=== PATIENT | female | born 1975 | race African-American/Black ===

== ENCOUNTER 2021-04-27 09:58 | Emergency (ER) | payer MEDICAID ==
[~2021-04-27] VITALS: Ht 165.1 cm; Wt 86.2 kg
[2021-04-27 10:05] VITALS: BP_SYST 99
--- NOTE | 2021-04-27 10:05 | NUR ---
Placed in room 7 . Placed on monitoring tech, blood pressure machine and pulse oximeter. To gown for exam. Side rails up. Report given to AIME CARRIZALES.
--- NOTE | 2021-04-27 10:14 | NUR ---
ER at bedside examining patient.
--- NOTE | 2021-04-27 10:15 | NUR ---
pt. came in for BP check, her MD started her on 3 new blood pressure meds. 2 weeks ago and she does not have a BP cuff so came here, denies any chest pain, no MANCIA, strictly wanted to see what her blood pressure was
[2021-04-27 10:51] VITALS: BP_SYST 91
--- NOTE | 2021-04-27 10:52 | NUR ---
Patient given written and verbal discharge instructions and verbalizes understanding. Dr. Tolbert discussed with patient the results and treatment provided. Patient in stable condition. ID arm band removed. Patient educated on pain management and to follow up with PMD. Opportunity for questions provided and answered.
== END 2021-04-27 10:51 | disposition home or self-care (01) ==
LOC: SED 09:58
DX: I10 Essential (primary) hypertension (principal); J45.909 Unspecified asthma, uncomplicated
CPT/HCPCS: 99281